=== PATIENT | female | born 1995 | race Caucasian/White ===

== ENCOUNTER → 2021-03-29 | Outpatient (CLI) | payer OTHER ==
[~2021-03-29] MED LIST: ISOVUE-300 61% 50ML VIAL As Ordered ONE
--- NOTE | 2021-04-04 18:08 | REP ---
INDICATION: INFERTILITY. COMPARISON: None. TECHNIQUE: The endometrium was cannulated and contrast was injected by the attending salesperson corsets Dr. Wise. Fluoroscopic spot films were acquired by TIFFANY Humphries, under the direct supervision of Dr. Michelle. Images reviewed prior with Dr. Michelle to dictation. FINDINGS: Fluoroscopy spot radiographs document filling of a normal endometrial cavity. Unfortunately a majority of the contrast was injected while the speculum was overlying the anatomy. There is normal isthmic and ampullary fallopian tube opacification, as well as spill into the peritoneal cavity. Most likely both fallopian tubes are patent, versus just one.. IMPRESSION: Normal hysterosalpingogram with bilateral tubal patency highly suspected. 0.6 minutes of fluoroscopy time was utilized for this procedure. Some fluoroscopic images are performed with last image hold technology. These images require no additional radiation. <Electronically signed by Tsering Hector > 03/29/21 1713 <Electronically signed by Srinivas Michelle > 04/04/21 0605
== END ==
LOC: M RADPRO 12:02
PROVIDERS: ATTEND Physical Therapist
DX: N97.2 Female infertility of uterine origin (principal)
CPT/HCPCS: 58340; 74740; Q9967

== ENCOUNTER 2021-10-09 18:40 | Day surgery (SDC) | payer OTHER ==
[~2021-10-09] VITALS: Ht 149.9 cm; Wt 54.0 kg
[2021-10-09] MEDS ORDERED: MIDOTAB PO (18:48)
[2021-10-09 19:53] LABS: BASO % 0.6 % (0.0-1.0); EOS # 0.1 10^3/uL (0.0-0.5); EOS % 1.5 % (0.0-3.0); HEMATOCRIT 33.2 % (36.0-47.0); HEMOGLOBIN 10.6 g/dl (12.0-15.5); LYMPH # 1.6 10^3/uL (1.5-5.0); LYMPH % 23.9 % (24.0-44.0); MEAN CORPUSCULAR HEMOGLOBIN 27.5 pg (27.0-33.0); MEAN CORPUSCULAR HGB CONC 31.9 g/dl (32.0-36.5); MEAN CORPUSCULAR VOLUME 86.2 fl (80.0-96.0); MONO # 0.6 10^3/uL (0.0-0.8); NEUTROPHILS # 4.3 10^3/uL (1.5-8.5); NEUTROPHILS % 64.7 % (36.0-66.0); PLATELET COUNT, AUTOMATED 293 10^3/uL (150-450); RED BLOOD COUNT 3.85 10^6/uL (4.00-5.40); WHITE BLOOD COUNT 6.7 10^3/uL (4.0-10.0)
[2021-10-09 21:01] LABS: BLOOD UREA NITROGEN 18 MG/DL (7-18); CALCIUM LEVEL 8.5 MG/DL (8.5-10.1); CARBON DIOXIDE LEVEL 25 MEQ/L (21-32); CHLORIDE LEVEL 112 MEQ/L (98-107); CREATININE FOR GFR 0.62 MG/DL (0.55-1.30); GLOMERULAR FILTRATION RATE > 60.0 (>60); GLUCOSE, FASTING 92 MG/DL (70-100); HCG, SERUM QUANTITATIVE 3020 MIU/ML; POTASSIUM SERUM 3.9 MEQ/L (3.5-5.1); SODIUM LEVEL 142 MEQ/L (136-145)
[2021-10-09] MEDS ORDERED: NS 1,000 ML IV ONE (22:35)
[2021-10-10] VITALS (7 sets, daily range): BP systolic 101–118; BP diastolic 51–76
[2021-10-10] MEDS ORDERED: BUPIVACAINE HCL 0.25% 30ML VIAL As Ordered ONE (00:05)
[2021-10-10 00:39] LABS: RSV AMPLIFICATION NEGATIVE (NEGATIVE)
[2021-10-10] MEDS ORDERED: MIDOTAB PO (00:52)
[2021-10-10] MEDS ORDERED: fentaNYL 100 MCG/2 ML INJECTION (J3010) As Ordered ONE ×2 (00:53→01:33)
[2021-10-10] MEDS ORDERED: propofoL 200 MG/20 ML VIAL As Ordered ONE (00:54)
[2021-10-10] MEDS ORDERED: ONDANSETRON 4MG/2ML VIAL As Ordered ONE (00:54)
[2021-10-10] MEDS ORDERED: ROCURONIUM BROMIDE 50 MG/5 ML VIAL As Ordered ONE ×2 (00:54→02:01)
[2021-10-10] MEDS ORDERED: LIDOCAINE 2% 100MG/5ML SDV (FOR ANES.) As Ordered ONE (00:54)
[2021-10-10] MEDS ORDERED: dexameTHASONE 4 MG/ML 1ML VIAL (J1100 PER 1MG) As Ordered ONE (00:54)
[2021-10-10] MEDS ORDERED: MIDAZOLAM INJ 2MG/2ML VIAL (J2250 PER 1MG) As Ordered ONE (00:54)
[2021-10-10] MEDS ORDERED: HOME MED LIST COMPLETE! XX SCH (00:55)
[2021-10-10] MEDS ORDERED: ACETAMINOPHEN 1000MG 100ML IV BTL (OFIRMEV) (J0131 PER 10MG) As Ordered ONE (01:29)
[2021-10-10] MEDS ORDERED: KETOROLAC 60MG 2ML VIAL As Ordered ONE (01:32)
[2021-10-10] MEDS ORDERED: SUGAMMADEX SODIUM 500 MG/5 ML VIAL (BRIDION) As Ordered ONE (01:32)
[2021-10-10] MEDS ORDERED: METOCLOPRAMIDE INJ 10MG/2ML VIAL (J2765 PER 1) IV PRN (03:00)
[2021-10-10] MEDS ORDERED: LR 1,000 ML IV SCH ×2 (03:00→05:00)
[2021-10-10] MEDS ORDERED: ONDANSETRON 4MG/2ML VIAL IV PRN (03:00)
[2021-10-10] MEDS ORDERED: oxyCODONE 5MG TAB PO PRN (03:00)
[2021-10-10] MEDS ORDERED: fentaNYL 100 MCG/2 ML INJECTION (J3010) IV PRN (03:00)
[2021-10-10] MEDS: oxyCODONE 5MG TAB PO PRN ×2 (05:41→11:27)
[2021-10-10] MEDS ORDERED: ACETAMINOPHEN 325 MG TAB PO SCH (08:00)
[2021-10-10] MEDS ORDERED: IBUPROFEN 800 MG TAB PO SCH (09:30)
[2021-10-10] MEDS ORDERED: ONDANSETRON 4 MG ORAL DISINTEGRATING TAB PO ONE (11:20)
[2021-10-10] MEDS ORDERED: ZOFR4TAB16 PO (11:33)
[2021-10-10] MEDS ORDERED: IBUP80TA PO (11:33)
== END 2021-10-10 11:45 | disposition home or self-care (01) ==
LOC: M ED 18:40 → M SDC 18:41 → M ED 10-10 01:12 → M OBS 10-10 04:00 → UNDOADMOB 10-10 04:00 → UNDODISOB 10-10 11:45 → M SDC 10-10 11:45
PROVIDERS: ATTEND Obstetrics & Gynecology
DX: O00.101 Right tubal pregnancy without intrauterine pregnancy (principal)
CPT/HCPCS: 59151; 76801; 76817; 80048; 81001; 84702; 85025; 86850; 86900; 86901; 86920; 87631; 88305; 93041; 93976; 96374; 99285; J0131; J1100; J1885; J2250; J2405; J3010; Q0162